=== PATIENT | male | born 1985 | race Hispanic/Latino ===

== ENCOUNTER 2018-01-15 22:12 | Emergency (ER) | payer BC, SELFPAY ==
--- NOTE | 2018-01-15 22:45 | EDPHYS ---
Physician Documentation [facility] Name: Slade Ortiz Age: 32 yrs Sex: Male : 1985 Arrival Date: 01/15/2018 Time: 22:17 Bed 27 Private MD: ED Physician Artem Bennett HPI: 01/15 22:52 This 32 yrs old Male presents to ER via Ambulatory with complaints of Leg snw Swelling, Leg Pain. 22:52 The patient presents with pain, swelling. The complaints affect the lateral aspect of snw left calf. Context: The problem was sustained at an unknown site, resulted from wearing boots all day without insert, changed gait, boot rubbed lateral lower leg, the patient can fully bear weight, the patient is able to ambulate, Problem is a result from a previous injury: No. Onset: The symptoms/episode began/occurred suddenly, this morning. Associated signs and symptoms: Pertinent positives: swelling, warmth, of the lateral aspect of left calf. Severity of symptoms: At their worst the symptoms were moderate. The patient has not experienced similar symptoms in the past. The patient has not recently seen a physician. Historical: - Allergies: 22:35 Darvocet-N 100; kr2 - Home Meds: 22:35 Metoprolol Tartrate Oral [Active]; kr2 - PMHx: 22:35 Hypertension; kr2 - PSHx: 22:35 Tonsillectomy; kr2 - Immunization history:: Adult Immunizations unknown. - Social history:: Smoking status: Patient/guardian denies using tobacco. - Ebola Screening: : No symptoms or risks identified at this time. ROS: 22:52 Constitutional: Negative for fever, chills, and weight loss, Eyes: Negative for injury, snw pain, redness, and discharge, ENT: Negative for injury, pain, and discharge, Neck: Negative for injury, pain, and swelling, Cardiovascular: Negative for chest pain, palpitations, and edema, Respiratory: Negative for shortness of breath, cough, wheezing, and pleuritic chest pain, Abdomen/GI: Negative for abdominal pain, nausea, vomiting, diarrhea, and constipation, Back: Negative for injury and pain, : Negative for injury, bleeding, discharge, and swelling, Skin: Negative for injury, rash, and discoloration, Neuro: Negative for headache, weakness, numbness, tingling, and seizure. 22:52 MS/extremity: Positive for pain, swelling, of the lateral aspect of left calf. Exam: 22:50 Constitutional: This is a well developed, obese patient who is awake, alert, and in no snw acute distress. Head/Face: Normocephalic, atraumatic. Eyes: Pupils equal round and reactive to light, extra-ocular motions intact. Lids and lashes normal. Conjunctiva and sclera are non-icteric and not injected. Cornea within normal limits. Periorbital areas with no swelling, redness, or edema. ENT: Nares patent. No nasal discharge, no septal abnormalities noted. Tympanic membranes are normal and external auditory canals are clear. Oropharynx with no redness, swelling, or masses, exudates, or evidence of obstruction, uvula midline. Mucous membranes moist. Neck: Trachea midline, no thyromegaly or masses palpated, and no cervical lymphadenopathy. Supple, full range of motion without nuchal rigidity, or vertebral point tenderness. No Meningismus. Chest/axilla: Normal chest wall appearance and motion. Nontender with no deformity. No lesions are appreciated. Cardiovascular: Regular rate and rhythm with a normal S1 and S2. No gallops, murmurs, or rubs. Normal PMI, no JVD. No pulse deficits. Respiratory: Lungs have equal breath sounds bilaterally, clear to auscultation and percussion. No rales, rhonchi or wheezes noted. No increased work of breathing, no retractions or nasal flaring. Abdomen/GI: Soft, non-tender, with normal bowel sounds. No distension or tympany. No guarding or rebound. No evidence of tenderness throughout. Back: No spinal tenderness. No costovertebral tenderness. Full range of motion. MS/ Extremity: Pulses equal, no cyanosis. Neurovascular intact. Full, normal range of motion. Neuro: Awake and alert, GCS 15, oriented to person, place, time, and situation. Cranial nerves II-XII grossly intact. Motor strength 5/5 in all extremities. Sensory grossly intact. Cerebellar exam normal. Normal gait. Psych: Awake, alert, with orientation to person, place and time. Behavior, mood, and affect are within normal limits. 22:50 Skin: Appearance: normal except for affected area, cellulitis, that is mild, well demarcated, on the lateral aspect of left calf. Vital Signs: 22:37 BP 163 / 103; Pulse 95; Resp 19; Temp 98.7; Pulse Ox 97% on R/A; Weight 172.37 kg; kr2 Height 5 ft. 9 in. (175.26 cm); 23:02 BP 160 / 98; Pulse 90; Resp 17; Pulse Ox 99% ; kr2 22:37 Body Mass Index 56.12 (172.37 kg, 175.26 cm) kr2 MDM: 22:26 Patient medically screened. snw 22:51 Data reviewed: vital signs, nurses notes. Data interpreted: Pulse oximetry: on room air snw is 97 %. Interpretation: normal. Counseling: I had a detailed discussion with the patient and/or guardian regarding: the historical points, exam findings, and any diagnostic results supporting the discharge/admit diagnosis, the presence of at least one elevated blood pressure reading (>120/80) during this emergency department visit, the need for outpatient follow up, to return to the emergency department if symptoms worsen or persist or if there are any questions or concerns that arise at home. Special discussion: I have referred the patient to see his PCP for further evaluation of high blood pressure. Based on the history and exam findings, there is no indication for further emergent testing or inpatient evaluation. 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 I discussed with the patient/guardian the need to see the primary care provider for further evaluation of the symptoms. 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 Exp: kr2 02/21/2020. Lot #: [id number]. } Route: IM; Site: left deltoid; 23:02 Follow up: Response: No adverse reaction kr2 22:54 Drug: Aspirin 81 mg Route: PO; kr2 23:02 Follow up: Response: Medication administered at discharge. kr2 22:54 Drug: Clindamycin 300 mg Route: PO; kr2 23:02 Follow up: Response: Medication administered at discharge. kr2 Disposition: 01/15/18 22:44 Discharged to Home. Impression: Cellulitis of left lower limb, Essential (primary) hypertension. - Condition is Stable. - Discharge Instructions: Cellulitis, Adult, Hypertension, VIS, Tetanus, Diphtheria (Td) - CDC, DASH Eating Plan, Rehydration, Adult, Heat Therapy, Managing Your Hypertension. - Prescriptions for Clindamycin HCl 300 mg Oral Capsule - take 1 capsule by ORAL route every 6 hours for 10 days; 40 capsule. - Work release form, Medication Reconciliation Form, Thank You Letter, Antibiotic Education, Prescription Opioid Use form. - Follow up: Private Physician; When: 2 - 3 days; Reason: Recheck today's complaints, Continuance of care, Re-evaluation by your physician. Follow up: Emergency Department; When: As needed; Reason: Worsening of condition. - Notes: Aspirin 81mg daily Addendum: 01/19/2018 06:39 Co-signature as Attending Physician, Artem Bennett MD. g s Signatures: Liberty Mckeon, EMETERIO-C WOMEN'S ACTIVITIES ADVISER-Csnw Artem Bennett MD MD gs Krystyna Katz, RN RN kr2 Corrections: (The following items were deleted from the chart) 01/15 23:03 22:44 01/15/2018 22:44 Discharged to Home. Impression: Cellulitis of left lower limb; kr2 Essential (primary) hypertension. Condition is Stable. Forms are Medication Reconciliation Form, Thank You Letter, Antibiotic Education, Prescription Opioid Use. Follow up: Private Physician; When: 2 - 3 days; Reason: Recheck today's complaints, Continuance of care, Re-evaluation by your physician. Follow up: Emergency Department; When: As needed; Reason: Worsening of condition. snw
--- NOTE | 2018-01-15 22:45 | ER ---
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 It is now tender to touch and earlier it was very red and hot. I was worried about cellulitis because of a crack on my heel from last Sunday. Transition of care: patient was not received from another setting of care. Onset of symptoms was January 15, 2018. Risk Assessment: Do you want to hurt yourself or someone else? Patient reports no desire to harm self or others. Initial Sepsis Screen: Does the patient meet any 2 criteria? No. Patient's initial sepsis screen is negative. Does the patient have a suspected source of infection? No. Patient's initial sepsis screen is negative. Care prior to arrival: None. 22:31 Method Of Arrival: Ambulatory kr2 22:31 Acuity: SELENE 3 kr2 Triage Assessment: 22:35 General: Appears in no apparent distress. comfortable, obese, well groomed, Behavior is kr2 calm, cooperative, appropriate for age. Pain: Complains of pain in lateral aspect of left calf Pain does not radiate. Pain currently is 0 out of 10 on a pain scale. at worst was 6 out of 10 on a pain scale. Quality of pain is described as sharp, tender, Is intermittent, Alleviated by rest, Aggravated by Touch, "It only hurts when touched". Historical: - Allergies: 22:35 Darvocet-N 100; kr2 - Home Meds: 22:35 Metoprolol Tartrate Oral [Active]; kr2 - PMHx: 22:35 Hypertension; kr2 - PSHx: 22:35 Tonsillectomy; kr2 - Immunization history:: Adult Immunizations unknown. - Social history:: Smoking status: Patient/guardian denies using tobacco. - Ebola Screening: : No symptoms or risks identified at this time. Screenin:38 Abuse screen: Denies threats or abuse. Denies injuries from another. Nutritional kr2 screening: No deficits noted. Tuberculosis screening: No symptoms or risk factors identified. Fall Risk None identified. Assessment: 22:54 General: Appears in no apparent distress. comfortable, obese, well groomed, Behavior kr2 is. Pain: Complains of pain in see triage assessment. Neuro: Level of Consciousness is awake, alert, obeys commands, Oriented to person, place, time, situation, Appropriate for age. Cardiovascular: Capillary refill < 3 seconds in bilateral fingers Patient's skin is warm and dry. Cardiovascular: Pulses are palpable in right dorsalis pedis artery and left dorsalis pedis artery Edema is 1+ to left midcalf. Respiratory: Airway is patent Respiratory effort is even, unlabored, Respiratory pattern is regular, symmetrical. GI: Patient currently denies nausea, vomiting. Derm: Skin is intact, is healthy with good turgor, Skin is pink, warm \\T\\ dry. redness left calf. Musculoskeletal: Circulation, motion, and sensation intact. Vital Signs: 22:37 BP 163 / 103; Pulse 95; Resp 19; Temp 98.7; Pulse Ox 97% on R/A; Weight 172.37 kg; kr2 Height 5 ft. 9 in. (175.26 cm); 23:02 BP 160 / 98; Pulse 90; Resp 17; Pulse Ox 99% ; kr2 22:37 Body Mass Index 56.12 (172.37 kg, 175.26 cm) kr2 ED Course: 22:17 Patient arrived in ED. es 22:18 Liberty Mckeon FNP-C [facility]. snw 22:18 Artem Bennett MD is Attending Physician. snw 22:34 Triage completed. kr2 22:39 Arm band placed on. kr2 22:39 Patient has correct armband on for positive identification. Bed in low position. Call kr2 light in reach. Side rails up X 1. Pulse ox on. NIBP on. Door closed. Head of bed elevated. 23:01 Krystyna Katz RN is Primary Nurse. kr2 23:02 No provider procedures requiring assistance completed. Patient did not have IV access kr2 during this emergency room visit. 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 Exp: kr2 02/21/2020. Lot #: [id number]. } Route: IM; Site: left deltoid; 23:02 Follow up: Response: No adverse reaction kr2 22:54 Drug: Aspirin 81 mg Route: PO; kr2 23:02 Follow up: Response: Medication administered at discharge. kr2 22:54 Drug: Clindamycin 300 mg Route: PO; kr2 23:02 Follow up: Response: Medication administered at discharge. kr2 Outcome: :44 Discharge ordered by MD. reagan 23:03 Discharged to home ambulatory. kr2 23:03 Condition: good 23:03 Discharge instructions given to patient, Instructed on discharge instructions, follow up and referral plans. medication usage, Demonstrated understanding of instructions, follow-up care, medications, Prescriptions given X 1. 23:03 Patient left the ED. kr2 Signatures: Liberty Mckeon, POLYGRAPH OPERATOR-C POLYGRAPH OPERATOR-Csnw Lina Bryant Karey, RN RN kr2
[2018-01-15] MEDS ORDERED: CLINDAMYCIN HCL 150 MG CAP ONE (22:56)
[2018-01-15] MEDS ORDERED: TETANUS & DIPHTHERIA TOX,ADULT 0.5 ML VIAL ONE (22:57)
[2018-01-15] MEDS ORDERED: ASPIRIN EC 81 MG TAB PO ONE (22:57)
== END 2018-01-15 23:03 | disposition home or self-care (01) ==
LOC: ER 22:12
DX: L03.116 Cellulitis of left lower limb (principal); I10 Essential (primary) hypertension; Z23 Encounter for immunization; Z79.899 Other long term (current) drug therapy
CPT/HCPCS: 90714; 99283

== ENCOUNTER 2019-10-28 18:04 | Emergency (ER) | payer BC, OTHER ==
--- OUTSIDE RECORDS SUMMARY | 2019-10-28 18:06 | XMS REPORT | Continuity of Care Document ---
:1985 Author Organization [facility] t Address [address] [place] [address] Care Team Providers Name Role Phone Scotty STORM, R Attending Clinician Doctor Unassigned, Name Attending Clinician Unavailable Problems This patient has no known problems. Allergies, Adverse Reactions, Alerts This patient has no known allergies or adverse reactions. Medications This patient has no known medications. Procedures This patient has no known procedures. Encounters Start End Encounter Admission Attending Care Care Encounter Source Date/Time Date/Time Type Type Clinicians Facility Department ID 2019-04-16 2019-04-16 Emergency Scotty INISAIAS [id number] 11:54:40 13:04:00 Dwight Randhawa [id number] [place] [id number] [place] [id number] 2019-04-16 2019-04-16 Orders Doctor HARSHA [id number] 00:00:00 00:00:00 Only UnassignedALCIDES [id number] [place] [id number] Results This patient has no known results.
--- NOTE | 2019-10-28 19:55 | ER ---
Nurse's Notes [facility] Name: Slade Ortiz Age: 33 yrs Sex: Male : 1985 Arrival Date: 10/28/2019 Time: 18:06 Bed 8 Private MD: Diagnosis: Acute upper respiratory infection, unspecified Presentation: 10/27 18:20 Chief complaint: Patient states: Sore throat, cough, fatigue, hot/chills for 1 day. ll1 Coronavirus screen: Client denies travel out of the [place] in the last 14 days. chills, cough unrelated to allergies, fatigue, sore throat, Client presents with at least one sign or symptom that may indicate coronavirus-19. Standard/surgical mask placed on the client. Ebola Screen: Patient denies travel to an Ebola-affected area in the 21 days before illness onset. Initial Sepsis Screen: Does the patient meet any 2 criteria? No. Patient's initial sepsis screen is negative. Risk Assessment: Do you want to hurt yourself or someone else? Patient reports no desire to harm self or others. Onset of symptoms was October 28, 2019. 18:20 Method Of Arrival: Ambulatory ll1 18:20 Acuity: SELENE 3 ll1 20:17 Initial Sepsis Screen: Does the patient have a suspected source of infection? No. rv Patient's initial sepsis screen is negative. Historical: - Allergies: 18:22 Darvocet-N 100; ll1 - PMHx: 18:22 Hypertension; ll1 - PSHx: 18:22 Tonsillectomy; ll1 - Immunization history:: Flu vaccine is not up to date. - Social history:: Smoking status: Patient denies any tobacco usage or history of. Patient/guardian denies using alcohol, street drugs. Screenin:50 Abuse screen: Denies threats or abuse. Nutritional screening: No deficits noted. em Tuberculosis screening: No symptoms or risk factors identified. Fall Risk None identified. Assessment: 18:50 General: Appears in no apparent distress. comfortable, Behavior is Denies fever. Pain: em Complains of pain in sore throat. Neuro: Level of Consciousness is awake, alert, obeys commands, Oriented to person, place, time, situation, Appropriate for age. Cardiovascular: Denies chest pain, shortness of breath, Capillary refill < 3 seconds Patient's skin is warm and dry. Respiratory: Airway is patent Respiratory effort is even, unlabored, Respiratory pattern is regular, symmetrical, Breath sounds are clear bilaterally. Denies shortness of breath. GI: Abdomen is round non-distended. EENT: Oral mucosa is moist. Throat is clear is pink bilaterally Reports nasal congestion. Derm: Skin is intact, is healthy with good turgor, Skin is pink, warm \T\ dry. Musculoskeletal: Capillary refill < 3 seconds, Range of motion: intact in all extremities. Vital Signs: 18:20 BP 137 / 85; Pulse 92; Resp 18; Temp 98.6; Pulse Ox 96% ; Weight 176.9 kg; Height 5 ft. ll1 9 in. (175.26 cm); Pain 0/10; 20:17 BP 131 / 86; Pulse 89; Resp 18; Temp 98; Pulse Ox 97% on R/A; rv 18:20 Body Mass Index 57.59 (176.90 kg, 175.26 cm) ll1 ED Course: 18:06 Patient arrived in ED. ag5 18:07 Reny Allred FNP-C is PHCP. kb 18:07 Dani Curry MD is Attending Physician. kb 18:22 Triage completed. ll1 18:22 Arm band placed on Patient placed in an exam room, on a stretcher. ll1 18:43 Javi Bourgeois, RN is Primary Nurse. em 18:50 Patient has correct armband on for positive identification. em 20:17 No provider procedures requiring assistance completed. Patient did not have IV access rv during this emergency room visit. Administered Medications: No medications were administered Outcome: 19:55 Discharge ordered by . kb 20:17 Discharged to home ambulatory. rv 20:17 Condition: good 20:17 Discharge instructions given to patient, Instructed on discharge instructions, follow up and referral plans. Demonstrated understanding of instructions, follow-up care. 20:17 Patient left the ED. rv Addendum: 10/31/2019 12:12 Addendum: COVID-19 Result: Positive result giiven to ED physician to notify pt. s s Physician: Shahbaz Silva MD Physician attempted to contact pt. Physician left voice mail for pt to call the ED back. 12:42 Addendum: COVID-19 Result: Positive result giiven to ED physician to notify pt. s s Physician was able to contact pt and pt was notified of positive COVID-19 swab result. Physician answered pt questions. Signatures: Reny Allred, EMETERIO-C SCHOOL LUNCH MANAGER-Javi Estrada, RN RN Radha Mccarthy RN RN ss Julio Griffin RN RN Jonathan Burns ag5 Liane Brewer RN RN ll1
--- NOTE | 2019-10-28 19:55 | EDPHYS ---
Physician Documentation [facility] Name: Slade Ortiz Age: 33 yrs Sex: Male : 1985 Arrival Date: 10/28/2019 Time: 18:06 Bed 8 Private MD: ED Physician Dani Curry HPI: 10/27 19:11 This 33 yrs old Male presents to ER via Ambulatory with complaints of Sore kb Throat, Cough. 19:10 The patient has not experienced similar symptoms in the past. The patient has not kb recently seen a physician. 19:11 The patient or guardian reports cough, that is intermittent, described as mild, with no kb sputum, flu symptoms, myalgias. Onset: The symptoms/episode began/occurred this morning. Severity of symptoms: At their worst the symptoms were mild, in the emergency department the symptoms are unchanged. Modifying factors: The symptoms are alleviated by nothing, the symptoms are aggravated by nothing. Associated signs and symptoms: Pertinent positives: sore throat, Pertinent negatives: chest pain, diarrhea, ear ache, fever, nausea, rhinorrhea, vomiting. Pt reports slight nonproductive cough, sore throat, chills, malaise and fatigue that started this morning. States his wanted him to come make sure it wasn't COVID. Historical: - Allergies: 18:22 Darvocet-N 100; ll1 - PMHx: 18:22 Hypertension; ll1 - PSHx: 18:22 Tonsillectomy; ll1 - Immunization history:: Flu vaccine is not up to date. - Social history:: Smoking status: Patient denies any tobacco usage or history of. Patient/guardian denies using alcohol, street drugs. ROS: 19:10 Neck: Negative for injury, pain, and swelling, Cardiovascular: Negative for chest pain, kb palpitations, and edema, Abdomen/GI: Negative for abdominal pain, nausea, vomiting, diarrhea, and constipation, Back: Negative for injury and pain, MS/Extremity: Negative for injury and deformity, Skin: Negative for injury, rash, and discoloration, Neuro: Negative for headache, weakness, numbness, tingling, and seizure. 19:10 Constitutional: Positive for chills, fatigue, malaise. 19:10 ENT: Positive for sore throat. 19:10 Respiratory: Positive for cough, with no reported sputum, Negative for dyspnea on exertion, hemoptysis, orthopnea, pleurisy, shortness of breath, sputum production, wheezing. Exam: 19:10 Constitutional: This is a well developed, well nourished patient who is awake, alert, kb and in no acute distress. Head/Face: Normocephalic, atraumatic. Chest/axilla: Normal chest wall appearance and motion. Nontender with no deformity. No lesions are appreciated. Cardiovascular: Regular rate and rhythm with a normal S1 and S2. No gallops, murmurs, or rubs. Normal PMI, no JVD. No pulse deficits. Respiratory: Lungs have equal breath sounds bilaterally, clear to auscultation and percussion. No rales, rhonchi or wheezes noted. No increased work of breathing, no retractions or nasal flaring. Abdomen/GI: Soft, non-tender, with normal bowel sounds. No distension or tympany. No guarding or rebound. No evidence of tenderness throughout. Skin: Warm, dry with normal turgor. Normal color with no rashes, no lesions, and no evidence of cellulitis. MS/ Extremity: Pulses equal, no cyanosis. Neurovascular intact. Full, normal range of motion. Neuro: Awake and alert, GCS 15, oriented to person, place, time, and situation. Cranial nerves II-XII grossly intact. Motor strength 5/5 in all extremities. Sensory grossly intact. Cerebellar exam normal. Normal gait. Vital Signs: 18:20 BP 137 / 85; Pulse 92; Resp 18; Temp 98.6; Pulse Ox 96% ; Weight 176.9 kg; Height 5 ft. ll1 9 in. (175.26 cm); Pain 0/10; 20:17 BP 131 / 86; Pulse 89; Resp 18; Temp 98; Pulse Ox 97% on R/A; rv 18:20 Body Mass Index 57.59 (176.90 kg, 175.26 cm) ll1 MDM: 18:23 Patient medically screened. kb 19:10 Data reviewed: vital signs, nurses notes. Data interpreted: Pulse oximetry: on room air kb is 96 %. Interpretation: normal. 19:54 Counseling: I had a detailed discussion with the patient and/or guardian regarding: the kb historical points, exam findings, and any diagnostic results supporting the discharge/admit diagnosis, lab results, the need for outpatient follow up, a family practitioner, to return to the emergency department if symptoms worsen or persist or if there are any questions or concerns that arise at home. 10/27 18:31 Order name: Strep; Complete Time: 19:54 kb 10/27 18:31 Order name: COVID-19 kb 10/27 19:53 Order name: Throat Culture EDMS Administered Medications: No medications were administered Disposition: 10/28 09:18 Co-signature as Attending Physician, Dani Curry MD I agree with the assessment and kolton plan of care. Disposition: 10/28/19 19:55 Discharged to Home. Impression: Acute upper respiratory infection, unspecified. - Condition is Stable. - Discharge Instructions: Viral Respiratory Infection, COVID-19. - Medication Reconciliation Form, Thank You Letter, Antibiotic Education, Prescription Opioid Use form. - Follow up: Emergency Department; When: As needed; Reason: Worsening of condition. Follow up: Private Physician; When: 2 - 3 days; Reason: Recheck today's complaints, Continuance of care, Re-evaluation by your physician. Signatures: Dispatcher [employer] EDRI Reny Allred, EMETERIO-C MICROBIOLOGY LAB TECHNICIAN-Dani Nam MD MD cha Vicente, Ronaldo, RN RN Liane Muñoz RN RN ll1 Corrections: (The following items were deleted from the chart) 10/27 20:17 19:55 10/28/2019 19:55 Discharged to Home. Impression: Acute upper respiratory rv infection, unspecified. Condition is Stable. Forms are Medication Reconciliation Form, Thank You Letter, Antibiotic Education, Prescription Opioid Use. Follow up: Emergency Department; When: As needed; Reason: Worsening of condition. Follow up: Private Physician; When: 2 - 3 days; Reason: Recheck today's complaints, Continuance of care, Re-evaluation by your physician. kb
[2019-11-01 17:22] VITALS: BP 131/86; TEMP 98; O2SAT 97
== END 2019-10-28 20:17 | disposition home or self-care (01) ==
LOC: ER 18:04
DX: U07.1 COVID-19 (principal); J98.8 Other specified respiratory disorders; Z88.6 Allergy status to analgesic agent
CPT/HCPCS: 87070; 87081; 99281; U0002

== ENCOUNTER 2019-11-05 16:48 | Emergency (ER) | payer BC, OTHER ==
--- OUTSIDE RECORDS SUMMARY | 2019-11-05 16:50 | XMS REPORT | Continuity of Care Document ---
:1985 Author Organization [facility] t Address [address] [place] [address] Care Team Providers Name Role Phone Scotty EMETERIO, R Attending Clinician Doctor Unassigned, Name Attending [...] Facility Department ID 2019-04-16 2019-04-16 Emergency Scotty GAISAIAS [id number] 11:54:40 13:04:00 Dwight Randhawa [id number] [place] [id number] [place] [phone] [id number] 2019-04-16 2019-04-16 Orders Doctor HARSHA [id number] 00:00:00 00:00:00 Only UnassignedALCIDES [id number] [place] [facility] [phone] [id number] Results This patient has no known results.
[2019-11-05] MEDS ORDERED: dexAMETHasone 10 MG/ML VIAL ONE (18:33)
[2019-11-05] MEDS ORDERED: CEFTRIAXONE/SWI 1gm 1 GM/10 ML SYR ONE (18:34)
--- NOTE | 2019-11-05 18:46 | RAD REPORT ---
EXAM DESCRIPTION: Macho Single View11/05/2019 6:39 pm CLINICAL HISTORY: Chest pain COMPARISON: 2014 FINDINGS: Mild patchy opacities right lung. Moderate patchy opacities left lung The heart is normal size IMPRESSION: Mild patchy right and moderate patchy left pulmonary opacities consistent with pneumonia
[2019-11-05 19:17] LABS: Absolute Lymphocytes (CBC) 1.6 K/uL (0.7-4.9); Basophils % 0.4 % (0-1.3); Hematocrit 47.3 % (39.6-49.0); Lymphocytes % 30.7 % (15.3-44.8); RBC Red Blood Cell Count 5.45 M/uL (4.33-5.43)
--- NOTE | 2019-11-05 19:25 | RAD REPORT ---
EXAM DESCRIPTION: CT - Chest For Pe Angio - 11/05/2019 7:13 pm CLINICAL HISTORY: sob COMPARISON: None. TECHNIQUE: Dynamically enhanced axial 3 mm thick images of the chest were obtained during administra tion of <100> mL Isovue 370 IV contrast. Coronal and oblique reconstruction images were generated and reviewed. Exam utilizes a protocol for optimal evaluation of pulmonary arterial tree. Maximum intensity projections 3D imaging was utilized All CT scans are performed using dose optimization technique as appropriate and may include automated exposure control or mA/KV adjustment according to patient size. FINDINGS: The opacification of pulmonary arteries is suboptimal. No gross central pulmonary embolus seen A thoracic aortic aneurysm is not noted. A pleural effusion is not seen. A pericardial effusion is not seen. Mild to moderate left and moderate right bilateral ground-glass opacities scattered within the lungs IMPRESSION: No gross evidence of a central pulmonary embolus [id number] bilateral ground-glass opacities can be seen with Covid pneumonia
[2019-11-05 19:35] LABS: ALT/SGPT 85 U/L (12-78); AST/SGOT 52 U/L (15-37); Albumin 3.2 g/dL (3.4-5.0); Alkaline Phosphatase 66 U/L (45-117); BUN Blood Urea Nitrogen 10 mg/dL (7-18); Bicarbonate 31 mmol/L (21-32); Bilirubin Direct 0.1 mg/dL (0-0.2); Bilirubin Total 0.5 mg/dL (0.2-1.0); Ferritin 261.2 ng/mL (26-388); Glucose Level 107 mg/dL (74-106); Lipase 95 U/L (73-393); Potassium 4.3 mmol/L (3.5-5.1); Protein, Total 7.6 g/dL (6.4-8.2); Sodium Level 142 mmol/L (136-145); Troponin (Emerg Dept Use Only) < 0.02 ng/mL (0.0-0.045)
--- NOTE | 2019-11-05 20:15 | ER ---
Nurse's Notes [facility] Name: Slade Ortiz Age: 33 yrs Sex: Male : 1985 Arrival Date: 11/05/2019 Time: 16:51 Bed 15 Private MD: Diagnosis: Pneumonia, unspecified organism-bilateral patchy;Fever, unspecified;Cough;Essential (primary) hypertension;Obesity, unspecified Presentation: 11/04 16:57 Chief complaint: Patient states: Had covid positive here last week. Was slowly getting ll1 better. But yesterday, he started to cough again and noticed blood in it, became lethargic and weak again. + sweating at home. + SOB with exertion. Coronavirus screen: Client denies travel out of the [place] in the last 14 days. cough unrelated to allergies, difficulty breathing, fatigue, fever, shortness of breath, Client presents with at least one sign or symptom that may indicate coronavirus-19. Standard/surgical mask placed on the client. Client reports previous positive COVID test result. Ebola Screen: Patient denies travel to an Ebola-affected area in the 21 days before illness onset. Initial Sepsis Screen: Does the patient meet any 2 criteria? HR > 90 bpm. Risk Assessment: Do you want to hurt yourself or someone else? Patient reports no desire to harm self or others. Onset of symptoms was October 28, 2019. 16:57 Method Of Arrival: Ambulatory ll1 16:57 Acuity: SELENE 3 ll1 Triage Assessment: 18:04 General: Appears in no apparent distress. comfortable, Behavior is calm, cooperative. ls4 Historical: - Allergies: 17:01 Darvocet-N 100; ll1 - PMHx: 17:01 Hypertension; ll1 - PSHx: 17:01 Tonsillectomy; ll1 - Immunization history:: Flu vaccine is not up to date. - Social history:: Smoking status: Patient denies any tobacco usage or history of. Patient/guardian denies using alcohol, street drugs. Screenin:08 Abuse screen: Denies threats or abuse. Denies injuries from another. Nutritional ls4 screening: No deficits noted. Tuberculosis screening: No symptoms or risk factors identified. Fall Risk None identified. Assessment: 19:00 Reassessment: No changes from previously documented assessment. Patient and/or family ls4 updated on plan of care and expected duration. Pain level reassessed. Patient is alert, oriented x 3, equal unlabored respirations, skin warm/dry/pink. Pain: Denies pain. Respiratory: Airway is patent Respiratory effort is even, unlabored, Respiratory pattern is regular. Respiratory: Breath sounds are clear bilaterally. GI:. Derm: Skin is intact, Skin is pink, warm \T\ dry. Musculoskeletal: Capillary refill < 3 seconds, Range of motion: intact in all extremities. 20:00 Reassessment: Patient appears in no apparent distress at this time. No changes from ls4 previously documented assessment. Patient and/or family updated on plan of care and expected duration. Pain level reassessed. Patient is alert, oriented x 3, equal unlabored respirations, skin warm/dry/pink. 21:00 Reassessment: Patient appears in no apparent distress at this time. No changes from ls4 previously documented assessment. Patient and/or family updated on plan of care and expected duration. Pain level reassessed. Patient is alert, oriented x 3, equal unlabored respirations, skin warm/dry/pink. Vital Signs: 16:57 BP 122 / 79; Pulse 94; Resp 18; Temp 98.5; Pulse Ox 93% ; Weight 176.9 kg; Height 5 ft. ll1 9 in. (175.26 cm); Pain 0/10; 19:00 BP 128 / 74; Pulse 88; Resp 14; Pulse Ox 99% on R/A; Pain 0/10; ls4 20:00 BP 126 / 74; Pulse 78; Resp 18; Pulse Ox 99% on R/A; Pain 0/10; ls4 21:00 BP 132 / 80; Pulse 78; Resp 16; Pulse Ox 99% on R/A; Pain 0/10; ls4 16:57 Body Mass Index 57.59 (176.90 kg, 175.26 cm) ll1 ED Course: 16:51 Patient arrived in ED. mr 17:00 Triage completed. ll1 17:01 Arm band placed on. ll1 17:55 Shahbaz Silva MD is Attending Physician. kdr 18:08 Bella Smith, GAYLE is Primary Nurse. ls4 18:08 Patient has correct armband on for positive identification. Bed in low position. Call ls4 light in reach. Side rails up X 1. Pulse ox on. NIBP on. 18:08 No provider procedures requiring assistance completed. ls4 18:36 Flu and/or RSV swab sent to lab. Strep swab sent to lab. jp3 18:39 CXR XRAY In Process Unspecified. EDMS 18:40 Patient maintains SpO2 saturation greater than 95% on room air. jp3 18:40 First set of blood cultures drawn by me. Inserted saline lock: 20 gauge in right jp3 antecubital area, using aseptic technique. Blood collected. Inserted saline lock:. 18:42 Attending Physician role handed off by Shahbaz Silva MD kolton 18:42 Dani Curry MD is Attending Physician. kolton 18:53 Initial lab(s) drawn, by me, sent to lab. Second set of blood cultures drawn by me. jp3 19:13 CT Chest For PE Angio In Process Unspecified. EDMS 19:23 Notified ED physician of a critical lab result(s). D Dimer 590. sg 20:13 Jairo Finley MD is Referral Physician. kolton 20:17 US Extremity Venous W Compression Davidson In Process Unspecified. EDMS Administered Medications: 18:30 Drug: Decadron - Dexamethasone 6 mg Route: IVP; Site: left antecubital; ls4 19:00 Follow up: Response: No adverse reaction ls4 18:30 Drug: Rocephin - (cefTRIAXone) 1 grams Route: IVPB; Infused Over: 30 mins; Site: right ls4 antecubital; 19:00 Follow up: IV Status: Completed infusion ls4 20:15 Drug: NS 0.9% 1000 ml Route: IV; Rate: 125 ml/hr; Site: right antecubital; ls4 21:15 Follow up: IV Status: Completed infusion ls4 20:32 Drug: Zithromax 500 mg Route: IVPB; Infused Over: 1 hrs; Site: right antecubital; ls4 21:36 Follow up: IV Status: Completed infusion; IV Intake: 250ml ls4 20:42 Drug: Aspirin Chewable Tablet 162 mg Route: PO; ls4 21:10 Follow up: Response: No adverse reaction; Marked relief of symptoms ls4 20:42 Drug: Pepcid 20 mg Route: IVP; Site: right antecubital; ls4 21:10 Follow up: Response: No adverse reaction; Marked relief of symptoms ls4 Intake: 21:36 IV: 250ml; Total: 250ml. ls4 Outcome: 20:14 Discharge ordered by MD. hi 22:24 Patient left the ED. ls4 Signatures: Dispatcher [employer] EDMS Nikolai Nuñez, RN RN Dani Rodrigez MD MD cha Rittger, Kevin, MD MD kdr Isai, Bety mr Ignacio Michael jp3 Bella Smith RN RN ls4 Liane Brewer RN RN ll1 Corrections: (The following items were deleted from the chart) 17:02 16:57 Chief complaint: Patient states: Had covid positive here last week. Was slowly ll1 getting better. But yesterday, he started to cough again and noticed blood in it, became lethargic and weak again. + sweating at home. + SOB. ll1 20:14 20:14 Decadron - Dexamethasone 6 mg IVP in left antecubital ls4 ls4 22:23 22:22 General: Appears in no apparent distress. comfortable, Behavior is calm, ls4 cooperative, ls4
--- NOTE | 2019-11-05 20:15 | EDPHYS ---
Physician Documentation [facility] Name: Slade Ortiz Age: 33 yrs Sex: Male : 1985 Arrival Date: 11/05/2019 Time: 16:51 Bed 15 Private MD: ED Physician Dani Curry HPI: 11/04 18:46 This 33 yrs old Male presents to ER via Ambulatory with complaints of COVID+, kolton Cough. 18:46 The patient or guardian reports airway noise, cough, difficulty breathing. Onset: The kolton symptoms/episode began/occurred 5 day(s) ago. Severity of symptoms: At their worst the symptoms were mild, moderate, in the emergency department the symptoms are unchanged. Modifying factors: The symptoms are alleviated by nothing, the symptoms are aggravated by nothing. Associated signs and symptoms: The patient has no apparent associated signs or symptoms. The patient has not experienced similar symptoms in the past. Historical: - Allergies: 17:01 Darvocet-N 100; ll1 - PMHx: 17:01 Hypertension; ll1 - PSHx: 17:01 Tonsillectomy; ll1 - Immunization history:: Flu vaccine is not up to date. - Social history:: Smoking status: Patient denies any tobacco usage or history of. Patient/guardian denies using alcohol, street drugs. ROS: 18:47 Constitutional: Negative for fever, chills, and weight loss, Eyes: Negative for injury, kolton pain, redness, and discharge, ENT: Negative for injury, pain, and discharge, Neck: Negative for injury, pain, and swelling, Cardiovascular: Negative for chest pain, palpitations, and edema, Abdomen/GI: Negative for abdominal pain, nausea, vomiting, diarrhea, and constipation, Back: Negative for injury and pain, : Negative for injury, bleeding, discharge, and swelling, MS/Extremity: Negative for injury and deformity, Skin: Negative for injury, rash, and discoloration, Neuro: Negative for headache, weakness, numbness, tingling, and seizure, Psych: Negative for depression, anxiety, suicide ideation, homicidal ideation, and hallucinations, Allergy/Immunology: Negative for hives, rash, and allergies, Endocrine: Negative for neck swelling, polydipsia, polyuria, polyphagia, and marked weight changes, Hematologic/Lymphatic: Negative for swollen nodes, abnormal bleeding, and unusual bruising. 18:47 Respiratory: Positive for cough, hemoptysis, shortness of breath. Exam: 18:47 Constitutional: This is a well developed, well nourished patient who is awake, alert, kolton and in no acute distress. Head/Face: Normocephalic, atraumatic. Eyes: Pupils equal round and reactive to light, extra-ocular motions intact. Lids and lashes normal. Conjunctiva and sclera are non-icteric and not injected. Cornea within normal limits. Periorbital areas with no swelling, redness, or edema. ENT: Nares patent. No nasal discharge, no septal abnormalities noted. Tympanic membranes are normal and external auditory canals are clear. Oropharynx with no redness, swelling, or masses, exudates, or evidence of obstruction, uvula midline. Mucous membranes moist. Neck: Trachea midline, no thyromegaly or masses palpated, and no cervical lymphadenopathy. Supple, full range of motion without nuchal rigidity, or vertebral point tenderness. No Meningismus. Chest/axilla: Normal chest wall appearance and motion. Nontender with no deformity. No lesions are appreciated. Cardiovascular: Regular rate and rhythm with a normal S1 and S2. No gallops, murmurs, or rubs. Normal PMI, no JVD. No pulse deficits. Respiratory: Lungs have equal breath sounds bilaterally, clear to auscultation and percussion. No rales, rhonchi or wheezes noted. No increased work of breathing, no retractions or nasal flaring. Abdomen/GI: Soft, non-tender, with normal bowel sounds. No distension or tympany. No guarding or rebound. No evidence of tenderness throughout. Back: No spinal tenderness. No costovertebral tenderness. Full range of motion. Male : Normal genitalia with no discharge or lesions. Skin: Warm, dry with normal turgor. Normal color with no rashes, no lesions, and no evidence of cellulitis. Neuro: Awake and alert, GCS 15, oriented to person, place, time, and situation. Cranial nerves II-XII grossly intact. Motor strength 5/5 in all extremities. Sensory grossly intact. Cerebellar exam normal. Normal gait. Psych: Awake, alert, with orientation to person, place and time. Behavior, mood, and affect are within normal limits. 18:47 Musculoskeletal/extremity: Extremities: pain, swelling, tenderness, ROM: full active range of motion, full passive range of motion, Circulation is intact in all extremities. Sensation intact. Compartment Syndrome exam of affected extremity: is normal. DVT Exam: pain, swelling, tenderness, erythema, increased warmth, that is mild, of the right leg and left leg. Vital Signs: 16:57 BP 122 / 79; Pulse 94; Resp 18; Temp 98.5; Pulse Ox 93% ; Weight 176.9 kg; Height 5 ft. ll1 9 in. (175.26 cm); Pain 0/10; 19:00 BP 128 / 74; Pulse 88; Resp 14; Pulse Ox 99% on R/A; Pain 0/10; ls4 20:00 BP 126 / 74; Pulse 78; Resp 18; Pulse Ox 99% on R/A; Pain 0/10; ls4 21:00 BP 132 / 80; Pulse 78; Resp 16; Pulse Ox 99% on R/A; Pain 0/10; ls4 16:57 Body Mass Index 57.59 (176.90 kg, 175.26 cm) ll1 MDM: 18:43 Patient medically screened. kolton 18:48 Differential diagnosis: Anemia asthma, Bronchitis CHF exacerbation, Chronic Obstructive kolton Pulmonary Disease bronchitis, flu, pneumonia, pulmonary edema, Pulmonary Embolism reactive airway disease, Unstable Angina. Antibiotic administration: Rocephin and Zithromax given. The patient's Wells Deep Vein Thrombosis Score was calculated as follows: Total Score: 0-2 Pts- Low Risk. Differential Diagnosis: Bronchitis Influenza Upper Respiratory Infection Asthma Exacerbation Pneumonia. The patient's pulmonary embolism risk score was calculated as follows: hemoptysis (1.0 Pts) Total Score: 0-2 points. This patient was found to be at low risk for a pulmonary embolism by using the Well's assessment criteria. Immunization status:. Data reviewed: vital signs, nurses notes, lab test result(s), EKG, radiologic studies, CT scan, plain films. Data interpreted: compliance monitor: rate is 94 beats/min, rhythm is regular, Pulse oximetry: on room air is 93 %. Test interpretation: by ED physician or midlevel provider: ECG, plain radiologic studies. 11/04 18:10 Order name: Blood Culture Adult (2) kdr 11/04 18:10 Order name: BMP; Complete Time: 20:09 kdr 11/04 18:10 Order name: C-Reactive Protein; Complete Time: 20:09 [facility] 11/04 18:10 Order name: CBC with Diff; Complete Time: 20: [facility] 11/04 18:10 Order name: COVID-19 [facility] 11/04 18:10 Order name: D-Dimer; Complete Time: 20:09 [facility] 11/04 18:10 Order name: Ferritin; Complete Time: 20:09 [facility] 11/04 18:10 Order name: Flu; Complete Time: 20: [facility] 11/04 18:10 Order name: Lactate; Complete Time: 20: [facility] 11/04 18:10 Order name: LFT's; Complete Time: 20: [facility] 11/04 18:10 Order name: Lipase; Complete Time: 20: [facility] 11/04 18:10 Order name: Procalcitonin; Complete Time: 20: [facility] 11/04 18:10 Order name: PT-INR; Complete Time: 20: [facility] 11/04 18:10 Order name: Ptt, Activated; Complete Time: 20: [facility] 11/04 18:10 Order name: Strep; Complete Time: 20: [facility] 11/04 18:10 Order name: Troponin (emerg Dept Use Only); Complete Time: 20:09 [facility] 11/04 18:10 Order name: CXR XRAY; Complete Time: 20: [facility] 11/04 18:10 Order name: EKG; Complete Time: 18:11 [facility] 11/04 18:10 Order name: Cardiac monitoring; Complete Time: 19:04 [facility] 11/04 18:46 Order name: CT Chest For PE Angio; Complete Time: 20:09 [facility] 11/04 18:46 Order name: US Extremity Venous W Compression Davidson [facility] 11/04 19:21 Order name: Throat Culture [facility] 11/04 19:21 Order name: CREATININE WHOLE BLOOD; Complete Time: 20:09 [facility] 11/04 18:10 Order name: Droplet/Contact Precautions; Complete Time: 19:04 [facility] 11/04 18:10 Order name: IV Start; Complete Time: 19:03 [facility] 11/04 18:10 Order name: Labs collected and sent; Complete Time: 19:03 [facility] 11/04 18:10 Order name: O2 Per Protocol; Complete Time: 19: [facility] 11/04 18:10 Order name: O2 Sat Monitoring; Complete Time: 19:03 kdr Administered Medications: 18:30 Drug: Decadron - Dexamethasone 6 mg Route: IVP; Site: left antecubital; ls4 19:00 Follow up: Response: No adverse reaction ls4 18:30 Drug: Rocephin - (cefTRIAXone) 1 grams Route: IVPB; Infused Over: 30 mins; Site: right ls4 antecubital; 19:00 Follow up: IV Status: Completed infusion ls4 20:15 Drug: NS 0.9% 1000 ml Route: IV; Rate: 125 ml/hr; Site: right antecubital; ls4 21:15 Follow up: IV Status: Completed infusion ls4 20:32 Drug: Zithromax 500 mg Route: IVPB; Infused Over: 1 hrs; Site: right antecubital; ls4 21:36 Follow up: IV Status: Completed infusion; IV Intake: 250ml ls4 20:42 Drug: Aspirin Chewable Tablet 162 mg Route: PO; ls4 21:10 Follow up: Response: No adverse reaction; Marked relief of symptoms ls4 20:42 Drug: Pepcid 20 mg Route: IVP; Site: right antecubital; ls4 21:10 Follow up: Response: No adverse reaction; Marked relief of symptoms ls4 Disposition: 11/05/19 20:14 Discharged to Home. Impression: Pneumonia, unspecified organism - bilateral patchy, Fever, unspecified, Cough, Essential (primary) hypertension, Obesity, unspecified. - Condition is Stable. - Discharge Instructions: Fever, Adult, Hypertension, Obesity, Adult, Community-Acquired Pneumonia, Adult, Hypertension, Yvks-zp-Oitw, Community-Acquired Pneumonia, Adult, Zvve-fu-Irli, Aspirin and Your Heart, COVID-19. - Prescriptions for Bromfed DM 2- 30-10 mg/5 mL Oral syrup - take 10 milliliter by ORAL route every 6 hours; 180 milliliter. dexamethasone 2 mg Oral tablet - take 1 tablet by ORAL route 3 times per day; 15 tablet. Pepcid 20 mg Oral Tablet - take 1 tablet by ORAL route every 12 hours for 10 days; 20 tablet. Albuterol Sulfate 90 mcg/actuation - inhale 1-2 puff by INHALATION route every 4-6 hours; 1 Inhaler. Zithromax 500 mg Oral Tablet - take 1 tablet by ORAL route once daily for 5 days; 5 tablet. - Medication Reconciliation Form, Thank You Letter, Antibiotic Education, Prescription Opioid Use form. - Follow up: Private Physician; When: 2 - 3 days; Reason: Recheck today's complaints, Continuance of care, Re-evaluation by your physician. Follow up: Jairo Finley MD; When: 2 - 3 days; Reason: Recheck today's complaints, Continuance of care, Re-evaluation by your physician. - Problem is new. - Symptoms have improved. Signatures: Dispatcher [employer] EDGA Dani Curry MD MD cha Rittger, Kevin, MD MD kdr Bella Smith RN RN ls4 Liane Brewer RN RN ll1 Corrections: (The following items were deleted from the chart) 19:02 18:10 Alaniz ordered. kdr 3 19:03 18:10 Notify Health Dept [phone]/ ordered. [facility] 19:04 18:10 Document PUI# ordered. kdr 3 22:24 20:14 11/05/2019 20:14 Discharged to Home. Impression: Pneumonia, unspecified organism ls4 - bilateral patchy; Fever, unspecified; Cough; Essential (primary) hypertension; Obesity, unspecified. Condition is Stable. Forms are Medication Reconciliation Form, Thank You Letter, Antibiotic Education, Prescription Opioid Use. Follow up: Private Physician; When: 2 - 3 days; Reason: Recheck today's complaints, Continuance of care, Re-evaluation by your physician. Follow up: Jairo Finley; When: 2 - 3 days; Reason: Recheck today's complaints, Continuance of care, Re-evaluation by your physician. Problem is new. Symptoms have improved. kolton
[2019-11-05] MEDS ORDERED: ASPIRIN EC 81 MG TAB PO ONE (20:31)
[2019-11-05] MEDS ORDERED: FAMOTIDINE 20 MG/2 ML VIAL IV ONE (20:31)
[2019-11-05] MEDS ORDERED: NA CHLORIDE 0.9% 1,000 ML ONE (20:31)
[2019-11-05] MEDS ORDERED: AZITHROMYCIN 500 MG INJ IVPB ONE (20:32)
--- NOTE | 2019-11-05 20:45 | RAD REPORT ---
EXAM DESCRIPTION: USExtrem Venous W Compress Bil11/05/2019 8:17 pm CLINICAL HISTORY: Bilateral leg swelling /pain COMPARISON: none FINDINGS: The common femoral, superficial femoral, popliteal and posterior tibial veins bilaterally are compressible and demonstrate augmentation. Doppler demonstrates good flow. IMPRESSION: No evidence of deep venous thrombosis involving either lower extremity.
[2019-11-05] MEDS ORDERED: NA CHLORIDE 0.9% 250 ML ONE (20:58)
[2019-11-07 23:44] VITALS: TEMP 98.5
[2019-11-07 23:46] VITALS: O2SAT 99
[2019-11-07 23:48] VITALS: BP 132/80
== END 2019-11-05 22:24 | disposition home or self-care (01) ==
LOC: ER 16:48
DX: U07.1 COVID-19 (principal); J12.89 Other viral pneumonia; E66.9 Obesity, unspecified; R05 Cough; I10 Essential (primary) hypertension; R50.9 Fever, unspecified
CPT/HCPCS: 93005; 87040 ×2; 87070; 85025; 80048; 36415; 85610; 82565; 85379; 80076; 87081; 83605; 85730; 84484; 82728; 83690; 84145; 86140; 87804 ×2; 71275; 71045; 93970; 99284; Q9967; J0456; J1100; J0696; J7050; J7030

== ENCOUNTER → 2023-03-26 | Emergency (ER) | payer BC ==
[~2023-03-26] MED LIST: KETOROLAC 30 MG/ML INJ ONE; dexAMETHasone 10 MG/ML VIAL ONE
--- OUTSIDE RECORDS SUMMARY | 2023-03-26 03:35 | XMS REPORT | Continuity of Care Document ---
Author Name Unknown Address [address] [place] [address] [facility] Address [address] [place] [address] Care Team Providers Care Comb Setter Name Role Phone Pcp, Patient Does Not Have A Primary Care Physic marianne Doctor Unassigned, [place] Attending Clinician [facility], Adc Fam Pob I Attending Clinician UnavailManjinder Smith Attending Clinician MANJINDER BAKER Attending Clinician Dwight Morales Attending Clinician [phone] Payers Payer Name Policy Type Policy Number Effective Date Expirati on Date Source Allergies, Adverse Reactions, Alerts Allergy Name Allergy Type Status Severity Reaction(s) Onset Date Inactive Date Treating Clinician Comments Source NO KNOWN ALLERGIE S Drug Class Active [facility] Social History Social Habit Start Date Stop Date Quantity Comments Source Exposure to SARS-CoV-2 (event) Yes [facility] Sexual orientation U [facility] Sex Assigned At 1985 00:00:00 1985 00:00:00 [facility] Smoking Status Start Date Stop Date Source Tobacco smoking consumption unknown [facility] Medications Ordered Medication Name Filled Medication Name Start Date Stop Date Current Medication? Ordering Clinician Indication Dosage Frequency Signature (SIG) Comments Components Source FENTanyl PF (SUBLIMAZE (PF)) injection 50 mcg 2020-0 2-12 19:30: 00 04-16 18:31 :00 No 50ug 50 mcg, Intramuscu lar, ONCE, 1 dose, Sun04/16/19 at 1330, STAT [facility] methocarbam ol (ROBAXIN) tablet 750 mg 04-16 18:23: 00 04-16 18:30 :00 No 750mg 750 mg, Oral, ONCE, 1 dose, Sun04/16/19 at 1230, BENEDICT [facility] traMADol 50 mg tablet 04-16 00:00: 00 Yes [id number] 50mg Take 1 tablet by mouth every 6 (six) hours as needed for Pain (scale 7-10) for up to 12 doses. [facility] traMADol 50 mg tablet 04-16 00:00: 00 Yes [id number] 50mg Take 1 tablet by mouth every 6 (six) hours as needed for Pain (scale 7-10) for up to 12 doses. [facility] traMADol 50 mg tablet 04-16 00:00: 00 Yes [id number] 50mg Take 1 tablet by mouth every 6 (six) hours as needed for Pain (scale 7-10) for up to 12 doses. [facility] traMADol 50 mg tablet 04-16 00:00: 00 Yes [id number] 50mg Take 1 tablet by mouth every 6 (six) hours as needed for Pain (scale 7-10) for up to 12 doses. [facility] traMADol 50 mg tablet 04-16 00:00: 00 Yes [id number] 50mg Take 1 tablet by mouth every 6 (six) hours as needed for Pain (scale 7-10) for up to 12 doses. [facility] methocarbam ol (ROBAXIN-75 0) 750 mg tablet 04-16 00:00: 00 04-27 05:59 :00 No [id number] 750mg Take 1 tablet by mouth 4 (four) times daily for 10 days. [facility] Vital Signs Vital Name Observation Time Observation Value Comments S ourlashawn Systolic blood pressure 2019-04-16 16:37:00 162 mm[Hg] [facility] Diastolic blood pressure 2019-04-16 16:37:00 100 mm[Hg] [facility] Heart rate 2019-04-16 16:37:00 75 /min Unive [facility] Body temperature 2019-04-16 16:37:00 36.78 Jazmín [facility] Respiratory rate 2019-04-16 16:37:00 18 /min [facility] Body height 2019-04-16 16:37:00 175.3 cm [facility] Body weight 2019-04-16 16:37:00 176.903 kg [facility] BMI 2019-04-16 16:37:00 57.59 kg/m2 [facility] Oxygen saturation in Arterial blood by Pulse oximetry 2019-04-16 16:37:00 98 /min [facility] Systolic blood pressure 2019-04-16 16:37:00 162 mm[Hg] [facility] Diastolic blood pressure 2019-04-16 16:37:00 100 mm[Hg] [facility] Heart rate 2019-04-16 16:37:00 75 /[facility] temperature 2019-04-16 16:37:00 36.78 Jazmín [facility] Respiratory rate 2019-04-16 16:37:00 18 /min [facility] Body height 2019-04-16 16:37:00 175.3 cm [facility] Body weight 2019-04-16 16:37:00 176.903 kg [facility] BMI 2019-04-16 16:37:00 57.59 kg/m2 [facility] Oxygen saturation in Arterial blood by Pulse oximetry 2019-04-16 16:37:00 98 /min [facility] Procedures Procedure Date / Time Performed Performing Clinicia n Source REFERRAL- REQUEST/RESPONSE 2022-12-14 05:01:00 Doctor Unassigned, [place] [facility] NOTICE OF PRIVACY PRACTICES 2019-04-16 16:34:04 Doctor Unassigned, [place] [facility] CONSENT/REFUSAL FOR DIAGNOSIS AND TREATMENT 2019-04-16 16:33:51 Doctor Unassigned, [place] [facility] Encounters Start Date/Time End Date/Time Encounter Type Admission Type Attending [facility] Facility Care Department Encounter ID Source 2022-12-14 16:48:48 2022-12-14 16:48:48 Outpatient [facility] [id number] 2022-12-14 00:00:00 2022-12-14 00:00:00 Orders Only Doctor Unassigned, [place] [facility] [id number] [id number] [facility] 2022-12-07 15:15:59 2022-12-07 15:15:59 Outpatient [facility] [id number] 2022-04-24 15:04:21 2022-04-24 15:04:21 Outpatient [facility] [id number] 2020-09-22 13:18:51 2020-09-22 13:24:51 Laboratory Only Lab, Adc Fam Pob I Manjinder Baker [facility] [id number] [id number] [id number] [id number] [facility] 2020-09-22 13:20:00 2020-09-22 13:20:00 Outpatient R MANJINDER BAKER [facility] [id number] [facility] 2020-09-22 00:00:00 2020-09-22 00:00:00 Letter (Out) Doctor Unassigned, [place] [facility] [id number] [id number] [id number] [id number] [facility] 2020-09-22 00:00:00 2020-09-22 00:00:00 Letter (Out) Doctor Unassigned, [place] [facility] [id number] [id number] [id number] [id number] [facility] 2019-04-16 11:54:40 2019-04-16 13:04:00 Emergency Dwight Fajardo [facility] [id number] [id number] [id number] [id number] [facility] 2019-04-16 11:54:40 2019-04-16 13:04:00 Emergency Dwight Fajardo [facility] [id number] [id number] [id number] 2019-04-16 00:00:00 2019-04-16 00:00:00 Orders Only Doctor Unassigned, [place] [facility] [id number] [id number] [id number] [id number] [facility] 2019-04-16 00:00:00 2019-04-16 00:00:00 Orders Only Doctor Unassigned, [place] [facility] [id number] [id number] [id number] [id number]
--- NOTE | 2023-03-26 05:08 | ER ---
Nurse's Notes [facility] Name: Slade Ortiz Age: 37 yrs Sex: Male : 1985 Arrival Date: 03/26/2023 Time: 03:32 Bed 13 Private MD: Diagnosis: back pain Presentation: 03/26 04:21 Chief complaint: Patient states: 4 months ago pulled a muscle in right shoulder, pain tm6 became significantly worse over night. Coronavirus screen: Vaccine status: Patient reports receiving the 2nd dose of the covid vaccine. Ebola Screen: Patient negative for fever greater than or equal to 101.5 degrees Fahrenheit, and additional compatible Ebola Virus Disease symptoms Patient denies exposure to infectious person. Patient denies travel to an Ebola-affected area in the 21 days before illness onset. No symptoms or risks identified at this time. Initial Sepsis Screen: Does the patient meet any 2 criteria? No. Patient's initial sepsis screen is negative. Does the patient have a suspected source of infection? No. Patient's initial sepsis screen is negative. Risk Assessment: Do you want to hurt yourself or someone else? Patient reports no desire to harm self or others. Onset of symptoms was March 26, 2023. 04:21 Method Of Arrival: Ambulatory tm6 04:21 Acuity: SELENE 4 tm6 Triage Assessment: 04:23 General: Appears uncomfortable. Musculoskeletal: Reports pain in back. tm6 Historical: - Allergies: 04:23 Darvocet-N 100; tm6 - PMHx: 04:23 Hypertension; Asthma; Sleep apnea; tm6 - PSHx: 04:23 None; tm6 - Immunization history:: Adult Immunizations up to date, Client reports receiving the Doug \T\ Doug single-dose vaccine. Flu vaccine is not up to date. - Social history:: Smoking status: Patient denies any tobacco usage or history of. Patient uses alcohol, only on a social basis. Patient/guardian denies using street drugs. Screenin:[address] [facility] ED Fall Risk Assessment (Adult) History of falling in the last 3 months, tm6 including since admission No falls in past 3 months (0 pts). Abuse screen: Denies threats or abuse. Denies injuries from another. Nutritional screening: No deficits noted. Tuberculosis screening: No symptoms or risk factors identified. Assessment: 04:06 General: Appears in no apparent distress. Behavior is calm, cooperative. Pain: tm6 Complains of pain in back Pain currently is 8 out of 10 on a pain scale. Quality of pain is described as sharp. Neuro: Level of Consciousness is awake, alert, obeys commands, Oriented to person, place, time, situation. Cardiovascular: Capillary refill < 3 seconds Patient's skin is warm and dry. Respiratory: Airway is patent Respiratory effort is even, unlabored, Respiratory pattern is regular, symmetrical. GI: Abdomen is obese. : No signs and/or symptoms were reported regarding the genitourinary system. EENT: No signs and/or symptoms were reported regarding the EENT system. Derm: No signs and/or symptoms reported regarding the dermatologic system. Musculoskeletal: Reports pain in back. 05:04 Reassessment: Patient states symptoms have improved. tm6 Vital Signs: 04:06 BP 137 / 67; Pulse 74; Resp 17; Pulse Ox 96% ; tm6 04:21 BP 144 / 70; Pulse 79; Resp 18; Temp 98.1; Pulse Ox 97% on R/A; Weight 192.78 kg; tm6 Height 5 ft. 9 in. ; Pain 7/10; 05:04 BP 113 / 59; Pulse 74; Pulse Ox 93% on R/A; tm6 04:21 Body Mass Index 62.76 (192.78 kg, 175.26 cm) tm6 04:21 Pain Scale: Adult tm6 ED Course: 03:38 Patient arrived in ED. gm2 03:41 Zion iMr DO is Attending Physician. ms3 04:06 Mayuri Dawn, RN is Primary Nurse. tm6 04:09 Patient has correct armband on for positive identification. Bed in low position. Call tm6 light in reach. Provided Education on: plan of care. Client placed on continuous cardiac and pulse oximetry monitoring. NIBP monitoring applied. Door closed. Noise minimized. Lights dimmed. 04:09 No provider procedures requiring assistance completed. tm6 04:23 Triage completed. tm6 04:23 Arm band placed on right wrist. tm6 05:07 Demetrius Devi DO is Referral Physician. ms3 05:19 Patient did not have IV access during this emergency room visit. pf1 Administered Medications: 04:20 Drug: Dexamethasone IM 10 mg IM once Route: IM; Site: left deltoid; tm6 05:13 Follow up: Response: No adverse reaction; Marked relief of symptoms tm6 04:21 Drug: Ketorolac IM 30 mg IM once Route: IM; Site: right deltoid; tm6 05:13 Follow up: Response: No adverse reaction; Marked relief of symptoms tm6 Medication: 04:09 VIS not applicable for this client. tm6 Outcome: 05:07 Discharge ordered by . ms3 05:19 Discharged to home ambulatory, pf1 05:19 Condition: improved 05:19 Discharge instructions given to patient, Instructed on discharge instructions, follow up and referral plans. Demonstrated understanding of instructions, follow-up care, 05:19 Patient left the ED. pf1 Signatures: Zion Mir DO DO ms3 Catalina Lobo, RN RN pf1 Saadia Michelle gm2 Mayuri Dawn RN RN tm6
--- NOTE | 2023-03-26 05:08 | EDPHYS ---
Physician Documentation [facility] Name: Slade Ortiz Age: 37 yrs Sex: Male : 1985 Arrival Date: 03/26/2023 Time: 03:32 Bed 13 Private MD: ED Physician Zion Mir HPI: 03/26 05:07 This 37 yrs old Male presents to ER via Ambulatory with complaints of Back ms3 Pain. 05:07 37-year-old male with past medical history of hypertension presents to the emergency ms3 department for right shoulder pain. Patient states he pulled a muscle in his back/shoulder 4 months ago and the pain began again yesterday. Patient states the pain is an "electric shock" and rated 7/10. Historical: - Allergies: 04:23 Darvocet-N 100; tm6 - PMHx: 04:23 Hypertension; Asthma; Sleep apnea; tm6 - PSHx: 04:23 None; tm6 - Immunization history:: Adult Immunizations up to date, Client reports receiving the Doug \\T\\ Doug single-dose vaccine. Flu vaccine is not up to date. - Social history:: Smoking status: Patient denies any tobacco usage or history of. Patient uses alcohol, only on a social basis. Patient/guardian denies using street drugs. ROS: 05:07 Constitutional: Negative for fever, and chills. Neck: Negative for injury, pain, and ms3 swelling, Cardiovascular: Negative for chest pain, and palpitations. Respiratory: Negative for shortness of breath, cough, wheezing, and pleuritic chest pain, 05:07 Back: Positive for Pain, 05:07 All other systems are negative, Exam: 05:07 Constitutional: This is a well developed, well nourished patient who is awake, alert, ms3 and in no acute distress. Head/Face: Normocephalic, atraumatic. Chest/axilla: Normal chest wall appearance and motion. Nontender with no deformity. Cardiovascular: Regular rate and rhythm with a normal S1 and S2. No gallops, murmurs, or rubs. Normal PMI, no JVD. No pulse deficits. Respiratory: Lungs have equal breath sounds bilaterally, clear to auscultation and percussion. No rales, rhonchi or wheezes noted. No increased work of breathing, no retractions or nasal flaring. Abdomen/GI: Soft, non-tender, with normal bowel sounds. No distension or tympany. No guarding or rebound. No evidence of tenderness throughout. Skin: Warm, dry with normal turgor. Normal color with no rashes, no lesions, and no evidence of cellulitis. MS/ Extremity: Pulses equal, no cyanosis. Neurovascular intact. Full, normal range of motion. Vital Signs: 04:06 BP 137 / 67; Pulse 74; Resp 17; Pulse Ox 96% ; tm6 04:21 BP 144 / 70; Pulse 79; Resp 18; Temp 98.1; Pulse Ox 97% on R/A; Weight 192.78 kg; tm6 Height 5 ft. 9 in. ; Pain 7/10; 05:04 BP 113 / 59; Pulse 74; Pulse Ox 93% on R/A; tm6 04:21 Body Mass Index 62.76 (192.78 kg, 175.26 cm) tm6 04:21 Pain Scale: Adult tm6 MDM: 03:52 Patient medically screened. ms3 05:07 Data reviewed: vital signs, nurses notes, and as a result, I will discharge patient. I ms3 considered the following discharge prescriptions or medication management in the emergency department Medications were administered in the Emergency Department. See MAR. Care significantly affected by the following chronic conditions: Hypertension. Counseling: I had a detailed discussion with the patient and/or guardian regarding the historical points, exam findings, and any diagnostic results supporting the discharge/admit diagnosis, the need for outpatient follow up, to return to the emergency department if symptoms worsen or persist or if there are any questions or concerns that arise at home. Response to treatment: the patient's symptoms have markedly improved after treatment, and as a result, I will discharge patient. Special discussion: I discussed with the patient/guardian in detail that at this point there is no indication for admission to the hospital. It is understood, however, that if the symptoms persist or worsen the patient needs to return immediately for re-evaluation. ED course: Patient improved after medication administered in the emergency department. Patient to follow-up with primary care physician in 2 to 3 days. Patient understands and agrees with plan. All questions were answered. Return precautions discussed include worsening symptoms, or any other concerns. On reevaluation patient is improved, alert and orient x 4, no apparent distress, nontoxic-appearing, ambulatory emergency primary, without bowel or bladder incontinence. Administered Medications: 04:20 Drug: Dexamethasone IM 10 mg IM once Route: IM; Site: left deltoid; tm6 05:13 Follow up: Response: No adverse reaction; Marked relief of symptoms tm6 04:21 Drug: Ketorolac IM 30 mg IM once Route: IM; Site: right deltoid; tm6 05:13 Follow up: Response: No adverse reaction; Marked relief of symptoms tm6 Disposition Summary: 03/26/23 05:07 Discharge Ordered Notes: Location: Home ms3 Condition: Stable ms3 Diagnosis - back pain ms3 Followup: ms3 - With: Demetrius Devi DO - When: 2 - 3 days - Reason: Re-evaluation by your physician Discharge Instructions: - Discharge Summary Sheet ms3 - Acute Back Pain, Adult ms3 Forms: - Medication Reconciliation Form ms3 - Thank You Letter ms3 - Antibiotic Education ms3 - Prescription Opioid Use ms3 - Patient Portal Instructions ms3 - Leadership Thank You Letter ms3 Signatures: Zion Mir DO DO ms3 Mayuri Dawn, RN RN tm6
== END ==
LOC: ER 03:32
DX: M54.9 Dorsalgia, unspecified (principal); M25.511 Pain in right shoulder; Z88.5 Allergy status to narcotic agent
CPT/HCPCS: 96372; 99284; J1100